=== PATIENT | male | born 1935 | race Caucasian/White ===

== ENCOUNTER 2020-08-20 02:42 | Observation (INO) | payer OTHER, MEDICARE ==
[~2020-08-20] VITALS: Ht 167.6 cm; Wt 89.4 kg
[2020-08-20] MEDS ORDERED: CLOP75 PO (04:01)
[2020-08-20] MEDS ORDERED: ATOR80 PO (04:02)
[2020-08-20] MEDS ORDERED: Aspir 8181 MG PO (04:02)
[2020-08-20] MEDS ORDERED: FINA5 PO (04:03)
[2020-08-20] MEDS ORDERED: FURO40 PO (04:03)
[2020-08-20] MEDS ORDERED: LATA.005SO BOTHEYES (04:04)
[2020-08-20] MEDS ORDERED: GLIM4 PO (04:04)
[2020-08-20] MEDS ORDERED: NORT25 PO (04:05)
[2020-08-20] MEDS ORDERED: METF500 PO (04:05)
[2020-08-20] MEDS ORDERED: TAMS.4ER PO (04:05)
[2020-08-20] MEDS ORDERED: VALS80 PO (04:06)
[2020-08-20 06:18] LABS: BASOPHILS ABSOLUTE AUTO 0.07 K/mm3 (0.00-0.23); BASOPHILS PERCENT AUTO 1 % (0-2); EOSINOPHILS ABSOLUTE AUTO 0.18 K/mm3 (0.00-0.68); EOSINOPHILS PERCENT AUTO 2 % (0-6); Hemoglobin 13.6 g/dL (13.5-17.5); IMMATURE GRAN ABSOLUTE AUTO 0.11 K/mm3 (0.00-0.10); IMMATURE GRAN PERCENT AUTO 1 % (0-1); LYMPHOCYTES ABSOLUTE AUTO 2.69 K/mm3 (0.84-5.20); LYMPHOCYTES PERCENT AUTO 24 % (21-46); MONOCYTES ABSOLUTE AUTO 0.97 K/mm3 (0.16-1.47); MONOCYTES PERCENT AUTO 9 % (4-13); Mean Corpuscular HGB 29.1 pg (26.0-34.0); Mean Corpuscular HGB Conc 31.6 g/dL (31.5-36.5); Mean Corpuscular Volume 92 fL (80-100); NEUTROPHILS ABSOLUTE AUTO 7.21 K/mm3 (1.96-9.15); NEUTROPHILS PERCENT AUTO 64 % (41-73); Platelet Count 317 K/mm3 (150-400); RDW Coefficient Variation 16.1 % (11.7-14.2); Red Blood Cell Count 4.68 M/mm3 (4.30-5.90); White Blood Cell Count 11.23 K/mm3 (4.00-11.30)
[2020-08-20 06:31] LABS: Albumin, Blood 2.9 g/dL (3.4-5.0); Albumin/Globulin Ratio 0.7 (0.8-1.8); Bilirubin, Total 0.5 mg/dL (0.1-1.0); Calcium, Blood 10.3 mg/dL (8.5-10.1); Creatinine, Blood 1.33 mg/dL (0.60-1.20); Potassium, Blood 3.8 mmol/L (3.5-5.5); Total Protein, Blood 6.9 g/dL (6.4-8.2)
[2020-08-20 11:10] LABS: Troponin I 13.3 ng/mL (0.000-0.040)
[2020-08-20 11:25] LABS: Creatine Kinase MB 6.5 ng/mL (0.0-3.6)
[2020-08-20 11:26] LABS: Creatine Kinase MB Index 2.7 (0.0-4.0)
--- NOTE | 2020-08-20 11:33 | NUR ---
0930 TELE CALLED IS DROPPING H/R TO 36 WHEN ASLEEP. PT AWAKENS SLOWLY, IS CONFUSED IRRITABLE AT FIRST. WITHIN A FEW MIN CAN ANSWER QUEST MOSTLY APPROP. DENIES CHEST PAIN, OR PRESSURE. TELE STATES H/R UP AFTER AWAKENS TO 60'S . CALLED DR WARD. EKG ORDERED. SHE CAME TO SEE PT. SHE CALLED DR RODRIGUEZ. HE IN TO SEE PT ALSO. WILL MOVE TO PCU AND GET HEPARIN DRIP. ORDERING EKG RECORDS AND CORONARY ANGIOGRAM REPORT FROM [facility]. BED IN LOW POSITION, CALL LITE IN REACH, BED ALARM ON FOR SAFETY
[2020-08-20 12:31] LABS: International Normalized Ratio 1.04; Prothrombin Time Results 11.1 Sec (9.7-11.5)
--- NOTE | 2020-08-20 13:20 | NUR ---
PT ARRIVED TO PCU FROM MEDICAL FLOOR, REPORT FROM JOSE LAGUNA, PT IS A/OX3, PLEASANT FOR THE MOST PART, HAS PERIODS OF CONFUSION WHEN SLEEPY, IS SITTING IN A RECLINER CHAIR, PLACED HIM ON A PILLOW FOR COMFORT, HE SAYS HE'S DOING OK, HIS HEART RATE GOES TO THE 30'S WHEN SLEEPING. CALL LIGHT IN REACH.
--- NOTE | 2020-08-20 16:10 | NUR ---
ECHOCARDIOGRAM COMPLETED
[2020-08-20 17:34] LABS: Source, Urine Clean Catch
[2020-08-20 17:41] LABS: Appearance, Urine Clear (Clear); Bilirubin, Urine Neg (Neg); Blood, Urine Neg (Neg); Color, Urine Yellow (P-Yellow); Glucose Qualitative, Urine 2+ (Neg); Ketones, Urine Neg (Neg); Leukocyte Esterase, Urine Neg (Neg); Nitrite, Urine Neg (Neg); Protein, Urine Neg (Neg); Urobilinogen, Urine NORM (Normal)
--- NOTE | 2020-08-20 18:24 | NUR ---
PT HAD AN EPISODE OF AN OUTBURST, CHARGE NURSE IN ROOM, HE BECAME VERY UPSET, AND THREATENED TO KILL EVERYONE, HE CALMED, HIS BROTHER CALLED AND SAID HE HAS OUTRAGIOUS TEMPER PROBLEMS AT TIMES. NO FURTHER EPISODES, UP TO CHAIR AGAIN, CALL LIGHT IN REACH.
[2020-08-20 20:16] LABS: Troponin I 9.7 ng/mL (0.000-0.040)
--- NOTE | 2020-08-20 20:17 | NUR ---
TROP 9.7, REPORTED BY LAB. PT DENIES ANY CHEST PAIN, NO SOB, A&OX3. TELE MONITOR REPORTED TYPE 1 MOBITS, HR 60S
--- NOTE | 2020-08-21 04:55 | NUR ---
SUMMARY PT A&O X 3 AT START OF SHIFT, SHOWED SIGNS OF MILD CONFUSION APPROX 7HRS INTO SHIFT. PTS MOOD DECLINED AT SAME TIME, BECOMING AGGITATED AT TIMES. O2 REMAINED AT 2 LPM VIA N/C, HOWEVER PT HAS MOMENTS OF SLEEP APNEA. PT REFUSED BIPAP SEVERAL TIMES. ACCORDING TO ASSEMBLER CATERPILLAR SPIDER, PT TELE CONTINUES TO SHOW TYPE 1 MOBITZ THROUGHOUT SHIFT WITH SHORT PERIODS OF BRADYCARDIA IN THE 30S. PT REMAINS ASYMPTOMATIC AND DENIES CHEST PAIN EACH TIME ASKED. AT THIS TIME, PT RESTING, SATS IN LOW 90S. WILL CONTINUE TO MONITOR
[2020-08-21 10:02] LABS: Anion Gap 9 mmol/L (6-16); Blood Urea Nitrogen 23 mg/dL (8-24); Bun/Creatinine Ratio 18.9 (12.0-20.0); CO2, Blood 23 mmol/L (21-32); Calcium, Blood 10.4 mg/dL (8.5-10.1); Chloride, Blood 109 mmol/L (98-108); Creatinine, Blood 1.22 mg/dL (0.60-1.20); Glomerular Filtration Rate >60 (60-); Glucose, Blood 308 mg/dL (70-99); Magnesium, Blood 2.2 mg/dL (1.6-2.4); Sodium, Blood 141 mmol/L (136-145)
[2020-08-21] MEDS ORDERED: Nitrostat0.4 MG SL (12:05)
--- NOTE | 2020-08-21 13:42 | NUR ---
DISCHARGE INSTRUCTIONS GONE OVER WITH PT. INSTRUCTED PT ON NEW MEDICATIONS AND CHANGES. DISCUSSED FOLLOW UP VISITS. BELONGINGS GATHERED AND GIVEN TO PT. PT ESCORTED OUT VIA WHEELCHAIR.
== END 2020-08-21 13:43 | disposition home or self-care (01) ==
LOC: ER 02:42 → MEDS 02:43 → PCU 02:43 → MEDS 08:14 → PCU 13:16 → ENPENDDIS 08-21 11:32 → PCU 08-21 13:43
PROVIDERS: Family Medicine; Internal Medicine; Internal Medicine Interventional Cardiology; ADMIT Internal Medicine
DX: I22.2 Subsequent non-ST elevation (NSTEMI) myocardial infarction (principal); I21.4 Non-ST elevation (NSTEMI) myocardial infarction; I22.1 Subsequent ST elevation (STEMI) myocardial infarction of inferior wall; I21.3 ST elevation (STEMI) myocardial infarction of unspecified site; I44.1 Atrioventricular block, second degree; N17.9 Acute kidney failure, unspecified; E83.52 Hypercalcemia; I25.10 Atherosclerotic heart disease of native coronary artery without angina pectoris; I10 Essential (primary) hypertension; E78.5 Hyperlipidemia, unspecified; E11.9 Type 2 diabetes mellitus without complications; N40.0 Benign prostatic hyperplasia without lower urinary tract symptoms; Z79.82 Long term (current) use of aspirin; Z79.02 Long term (current) use of antithrombotics/antiplatelets; Z79.84 Long term (current) use of oral hypoglycemic drugs; Z79.899 Other long term (current) drug therapy; Z95.1 Presence of aortocoronary bypass graft; Z98.61 Coronary angioplasty status; Z23 Encounter for immunization
CPT/HCPCS: 36415; 70450; 71045; 80048; 80053; 81003; 82550; 82553; 82947; 83735; 83880; 84484; 85025; 85610; 85730; 93005; 93010; 93306; 96372; 96374; 96375; 96376; 97116; 97162; 99285-25; A9270; A9270-GY; G0378; J1644; J1650; J1815; J1940